=== PATIENT | male | born 1965 | race Caucasian/White ===

== ENCOUNTER 2021-08-17 17:38 | Emergency (ER) | payer OTHER, SELFPAY ==
--- NOTE | ~2021-08-17 | XR_ITS ---
EXAMINATION: XR finger 4th LT min 2V DATE: 08/17/2021 18:19 INDICATION: Left hand fourth digit injury. TECHNIQUE: 4 views of left hand fourth digit were obtained. COMPARISON: None. FINDINGS: Bone alignment is normal. No fracture. Joint spaces of the fourth digit are well maintained . IMPRESSION: 1. No fracture. Reviewed, dictated and finalized at location A. [facility] IMPRESSION: 1. No fracture.
--- NOTE | 2021-08-17 17:53 | ED.EXTPRO ---
HPI - Extremity Problem General Chief complaint: Extremity Injury, Upper Stated complaint: finger injur/hand swelling Source: patient and RN notes reviewed Mode of arrival: ambulatory Limitations: no limitations History of Present Illness HPI Narrative: patient states he got his left ring finger crushed between a battery and the body of the car. This happened 2 weeks ago he had a laceration at the palmar aspect of the DIP. Then a few days ago it began swelling and he is having difficulty touching his finger to his thumb and making a fist due to the swelling and has become more painful. MD Complaint: extremity swelling Onset (ago): day(s) (2) Pain Consistency: constant Location: left and upper extremity (hand) Severity scale (1-10): 8 Quality: burning and aching Radiation: none Relieving factors: nothing Exacerbating factors: range of motion Associated symptoms: denies other symptoms Related Data Allergies Allergy/AdvReac Type Severity Reaction Status Date / Time No Known Allergies Allergy Verified 08/17/21 18:18 Review of Systems Review of Systems: All systems reviewed & are unremarkable except as noted in HPI and below PMFSH Past Medical History Medical History (Updated 08/17/21 @ 18:36 by Milan Tse MD) No active medical problems Surgical History Surgical History (Updated 08/17/21 @ 18:00 by Milan Tse MD) H/O inguinal hernia repair as a child Hx of myringoplasty bilateral Social History Social History (Updated 08/17/21 @ 18:00 by Milan Tse MD) Smoking status: Never smoker Alcohol intake: never Substance use: never Exam Const: General: healthy appearing, no acute distress and alert Nutritional Appearance: well nourished Orientation/consciousness: patient oriented x3 HENMT: Head: normal to inspection Ears: external ears normal ( hearing aids in place bilaterally) Eyes: Conjunctivae: conjunctivae normal Pupils: Equal, round and reactive pupils present EOM: EOMs intact bilaterally Neck: Neck: normal visual inspection Resp: Effort & Inspection: normal respiratory effort Cardio: Rate: regular rate Rhythm: regular rhythm GI: GI Palp: Yes Soft to palpation and No Tenderness to palpation present (GI) Auscultation: normal bowel sounds Back/Spine/Pelvis: Cervical Spine: cervical ROM normal Thoracic/Lumbar Spine: thoraco-lumbar ROM normal Skin: General skin exam: normal color Neuro: General: patient oriented x3, moves all extremities, no meningeal signs, no focal motor deficits and CN's II-XI intact bilaterally Speech: normal speech Gait exam (Neuro): Normal gait present Extrem: General: normal to inspection and no clubbing, cyanosis or edema Left upper extremity: hand neurosensory exam normal, tendon exam normal, tenderness of the palm centrally, distally and proximally, warmth of the palm centrally, distally and proximally and swelling of the dorsal hand distally and proximally and of the palm centrally, distally and proximally Psych: Appearance: grossly normal and well kempt Mental Status: mental status grossly normal Affect: normal affect Attitude: cooperative Thought content: Yes Normal thought content present Course Vital Signs Vital signs: Vital Signs Temperature 36.4 C L 08/17/21 17:58 Pulse Rate 88 08/17/21 17:58 Respiratory Rate 18 08/17/21 17:58 Blood Pressure 164/112 H 08/17/21 17:58 Pulse Oximetry 99 08/17/21 17:58 Temperature 36.4 C L 08/17/21 17:58 Pulse Rate 88 08/17/21 17:58 Respiratory Rate 18 08/17/21 17:58 Blood Pressure 164/112 H 08/17/21 17:58 Pulse Oximetry 99 08/17/21 17:58 MDM - Extremity (Nontraumatic) Imaging Data Radiologist's impression: no fracture Discharge Plan Discharge Clinical Impression: Cellulitis of left hand Patient Disposition: Home, Self-Care Condition: Stable Instructions: Antibiotic Form, Cellulitis (ED) Additional Instructions: monitor for worsening erythem
[2021-08-17 17:58] VITALS: BP 164/112; PULSE 88; RESP 18; TEMP 36.4; O2SAT 99
[2021-08-17] MEDS: CLINDAMYCIN HCL 150 MG CAP 300 MG PO (18:40)
== END 2021-08-17 18:58 | disposition home or self-care (01) ==
PROVIDERS: Emergency Provider Emergency Medicine; PCP Family Medicine
DX: L03.114 Cellulitis of left upper limb (principal)
CPT/HCPCS: 73140; 99283; A9270

== ENCOUNTER 2024-11-20 06:26 | Emergency (ER) | payer OTHER, SELFPAY ==
[2024-11-20] VITALS (58 sets, daily range): BP systolic 105–154; BP diastolic 70–91; PULSE 62–84; RESP 9–21; TEMP 36.4–36.6; O2SAT 91–97
--- NOTE | ~2024-11-20 | XR_ITS ---
Portable chest x-ray Comparison: 08/31/2013 Clinical History: Chest pain Findings: 9 mm left midlung nodule present, question calcified. Right lung clear. Cardiomediastinal silhouette is stable. Bones and soft tissues are unremarkable. Impression: 9 mm left midlung nodule. Chest CT recommended to further evaluate. Reviewed, dictated and finalized at location . Impression: 9 mm left midlung nodule. Chest CT recommended to further evaluate.
--- NOTE | 2024-11-20 06:29 | PC.NURSE ---
CARDIOPULMONARY AT THE BEDSIDE FOR EKG
--- NOTE | 2024-11-20 06:29 | ECG_ITS ---
Test Date: 2024-11-20 06:32:29 Measurements Intervals [place] Rate: 66 P: 49 OH: 165 QRS: 52 QRSD: 104 T: -14 QT: 392 QTc: 412 Interpretive Statements SINUS RHYTHM MINIMAL Q WAVES- INF/LAT LEADS ST-T WAVE ABNORMALITY IN INFERIOR LEADS- CONSIDER ISCHEMIA BASELINE ARTIFACT- I, II, III, AVR, AVL, AVF, V1-V6 ABNORMAL ECG No previous ECG available for comparison Electronically Signed On 11-20-2024 08:15:01 CDT by Rai Delacruz D.O.
--- NOTE | 2024-11-20 06:35 | ED_ITS ---
HPI - Chest Pain General Chief Complaint: Chest Pain <Luan Garcias MD - Last Filed: 11/20/24 06:49> Stated Complaint: chest pain <Luan Garcias MD - Last Filed: 11/20/24 06:49> Time Seen by Provider: 11/20/24 06:29 <Luan Garcias MD - Last Filed: 11/20/24 06:49> Source: patient <Luan Garcias MD - Last Filed: 11/20/24 06:49> Mode of arrival: ambulatory <Luan Garcias MD - Last Filed: 11/20/24 06:49> Limitations: no limitations <Luan Garcias MD - Last Filed: 11/20/24 06:49> History of Present Illness HPI narrative: patient is a 58-year-old male with recurrent chest pain over the past few years and has been seen in ERs for similar situations and discharged home. He has not been admitted for workup in many years. He has had a heart catheter in a few years ago and it was negative. He has lots of stress and anxiety issues. No shortness of breath. No nausea vomiting or diarrhea. Pain is reproducible on the chest. Nitro helps. He took a nitro on his way to the hospital and it was helpful but did give him a headache. <Luan Garcias MD - Last Filed: 11/20/24 06:49> MD complaint: chest pain and chest discomfort <Luan Garcias MD - Last Filed: 11/20/24 06:49> Pertinent past history: other ( Hypertension) <Luan Garcias MD - Last Filed: 11/20/24 06:49> Onset (ago): hour(s) ( 1) <Luan Garcias MD - Last Filed: 11/20/24 06:49> Timing of current episode: episodic <Luan Garcias MD - Last Filed: 11/20/24 06:49> Prior episodes: Yes <Luan Garcias MD - Last Filed: 11/20/24 06:49> Onset: during rest <Luan Garcias MD - Last Filed: 11/20/24 06:49> Pain location: substernal and left chest <Luan Garcias MD - Last Filed: 11/20/24 06:49> Pain radiation: none <Luan Garcias MD - Last Filed: 11/20/24 06:49> Severity: mild <Luan Garcias MD - Last Filed: 11/20/24 06:49> Pain scale (0-10): 1 <Luan Garcias MD - Last Filed: 11/20/24 06:49> Quality: tightness, heaviness and sharp <Luan Garcias MD - Last Filed: 11/20/24 06:49> Relieving factors: nitroglycerin <Luan Garcias MD - Last Filed: 11/20/24 06:49> Exacerbating factors: stress <Luan Garcias MD - Last Filed: 11/20/24 06:49> Context: other ( patient is having on and off chest pain for many years and is here for his recurrent chest pain that gets worse with stress but better with nitro) <Luan Garcias MD - Last Filed: 11/20/24 06:49> Associated symptoms: other ( none) <Luan Garcias MD - Last Filed: 11/20/24 06:49> Treatment prior to arrival: nitroglycerin <Luan Garcias MD - Last Filed: 11/20/24 06:49> Risk Factors Coronary artery disease risk factors: hypertension <Luan Garcias MD - Last Filed: 11/20/24 06:49> Thoracic aortic dissection risk factors: none <Luan Garcias MD - Last Filed: 11/20/24 06:49> Related Data Home Medications: Home Medications ?Medication ?Instructions ?Recorded ?Confirmed ?Last Taken ?Type lisinopril 20 mg tablet 20 mg PO DAILY 11/20/24 11/20/24 Unknown History nitroglycerin 0.4 mg sublingual 0.4 mg sublingual Q5M PRN chest 11/20/24 11/20/24 Unknown History tablet pain <Luan Garcias MD - Last Filed: 11/20/24 06:49> Allergies/Adverse Reactions: Allergies Allergy/AdvReac Type Severity Reaction Status Date / Time No Known Allergies Allergy Verified 11/20/24 06:37 <Luan Garcias MD - Last Filed: 11/20/24 06:49> Review of Systems 2 Review of Systems: All systems reviewed & are unremarkable except as noted in HPI and below <Luan Garcias MD - Last Filed: 11/20/24 06:49> Constitutional: Constitutional: Reports no additional constitutional complaints <Luan Garcias MD - Last Filed: 11/20/24 06:49> Eyes: Eyes: Reports no additional eye complaints <Luan Garcias MD - Last Filed: 11/20/24 06:49> ENT: Reports system reviewed and no additional complaints, except as documented <Luan Garcias MD - Last Filed: 11/20/24 06:49> Cardiovascular: Cardiovascular: Reports no additional cardiovascular complaints <Luan Garcias MD - Last Filed: 11/20/24 06:49> Respiratory: Respiratory: Reports no additional respiratory complaints < Luan Garcias MD - Last Filed: 11/20/24 06:49> Gastrointestinal: Gastrointestinal: Reports no additional gastrointestinal complaints <Luan Garcias MD - Last Filed: 11/20/24 06:49> Genitourinary: Genitourinary: Reports no additional male genitourinary complaints <Luan Garcias MD - Last Filed: 11/20/24 06:49> Musculoskeletal: Musculoskeletal: Reports no additional musculoskeletal complaints <Luan Garcias MD - Last Filed: 11/20/24 06:49> Integumentary/Breasts: Skin/Breast: Reports system reviewed and no additional complaints, except as docu <Luan Garcias MD - Last Filed: 11/20/24 06:49> Neurologic: Reports system reviewed and no additional complaints, except as documented <Luan Garcias MD - Last Filed: 11/20/24 06:49> Psychiatric: Psychiatric: Reports no additional psychiatric complaints < Luan Garcias MD - Last Filed: 11/20/24 06:49> Endocrine: Endocrine: Reports no additional endocrine complaints <Luan Garcias MD - Last Filed: 11/20/24 06:49> Hematologic/Lymphatic: Hematologic/Lymphatic: Reports no additional hematologic/lymphatic complaints <Luan Garcias MD - Last Filed: 11/20/24 06:49> Allergic/Immunologic: Allergic/Immunologic: Reports no additional allergic/immunologic complaints <Luan Garcias MD - Last Filed: 11/20/24 06:49> PMFSH Past Medical History Medical History: Medical History No active medical problems <Luan Garcias MD - Last Filed: 11/20/24 06:49> Surgical History Surgical History: Surgical History Hx of myringoplasty bilateral H/O inguinal hernia repair as a child <Luan Garcais MD - Last Filed: 11/20/24 06:49> Social History Social History: Social History Smoking status: Never smoker Alcohol intake: never Substance use: never <Luan Garcias MD - Last Filed: 11/20/24 06:49> Exam 2 Const: General: healthy appearing <Luan Garcias MD - Last Filed: 11/20/24 06:49> Nutritional Appearance: well nourished <Luan Garcias MD - Last Filed: 11/20/24 06:49> Orientation/consciousness: patient oriented x3 <Luan Garcias MD - Last Filed: 11/20/24 06:49> HENMT: Head: normal to inspection <Luan Garcias MD - Last Filed: 11/20/24 06:49> Ears: external ears normal <Luan Garcias MD - Last Filed: 11/20/24 06:49> Face/Nose/Sinus: Normal external nose present <Luan Garcias MD - Last Filed: 11/20/24 06:49> Eyes: Conjunctivae: conjunctivae normal <MD Mellisa Trinh Last Filed: 11/20/24 06:49> Pupils: Equal, round and reactive pupils present <MD Mellisa Trinh Last Filed: 11/20/24 06:49> EOM: EOMs intact bilaterally <MD Mellisa Trinh Last Filed: 11/20/24 06:49> Neck: Neck: normal visual inspection <MD Mellisa Trinh Last Filed: 11/20/24 06:49> Chest: Chest palpation & inspection: normal inspection of the chest <MD Mellisa Trinh Last Filed: 11/20/24 06:49> Resp: Effort & Inspection: normal respiratory effort and not labored <MD Mellisa Trinh Last Filed: 11/20/24 06:49> Auscultation: clear to auscultation bilaterally and no crackles <MD Mellisa Trinh Last Filed: 11/20/24 06:49> Cardio: Rate: regular rate <MD Mellisa Trinh Last Filed: 11/20/24 06:49> Rhythm: regular rhythm <MD Mellisa Trinh Last Filed: 11/20/24 06:49> Heart sounds: no murmurs <MD Mellisa Trinh Last Filed: 11/20/24 06:49> GI: Inspection: non-distended <MD Mellisa Trinh Last Filed: 11/20/24 06:49> GI Palp: Yes Soft to palpation and No Tenderness to palpation present (GI) < MD Mellisa Trinh Last Filed: 11/20/24 06:49> Auscultation: normal bowel sounds <MD Mellisa Trinh Last Filed: 11/20/24 06:49> : General: Yes bladder normal to palpation <MD Mellisa Trinh Last Filed: 11/20/24 06:49> Back/Spine/Pelvis: Back: no CVA tenderness <MD Mellisa Trinh Last Filed: 11/20/24 06:49> Skin: General skin exam: normal color <Luan Garcias MD - Last Filed: 11/20/24 06:49> Rashes: no rashes <Luan Garcias MD - Last Filed: 11/20/24 06:49> Wounds: no wounds <Luan Garcias MD - Last Filed: 11/20/24 06:49> Neuro: General: patient oriented x3 <Luan Garcias MD - Last Filed: 11/20/24 06:49> Cranial nerves: Yes Nystagmus not present <Luan Garcias MD - Last Filed: 11/20/24 06:49> Speech: normal speech <Luan Garcias MD - Last Filed: 11/20/24 06:49> Extrem: General: normal to inspection <Luan Garcias MD - Last Filed: 11/20/24 06:49> Psych: Mental Status: mental status grossly normal <Luan Garcias MD - Last Filed: 11/20/24 06:49> Affect: normal affect <Luan Garcias MD - Last Filed: 11/20/24 06:49> Attitude: cooperative <Luan Garcias MD - Last Filed: 11/20/24 06:49> Course Consultations Consultation #1: DR STARKS <Gulshan Beyer MD - Last Filed: 11/20/24 13:16> Vital Signs Vital signs: Vital Signs Temperature 36.4 C 11/20/24 06:26 Pulse Rate 64 11/20/24 06:26 Respiratory Rate 12 11/20/24 06:26 Blood Pressure 119/72 11/20/24 06:26 Pulse Oximetry 96 11/20/24 06:26 Oxygen Delivery Room Air 11/20/24 06:26 Temperature 36.4 C 11/20/24 06:26 Pulse Rate 75 11/20/24 13:01 Respiratory Rate 17 11/20/24 12:31 Blood Pressure 140/80 11/20/24 13:01 Pulse Oximetry 94 11/20/24 13:01 Oxygen Delivery Room Air 11/20/24 06:26 <Luan Garcias MD - Last Filed: 11/20/24 06:49> Vital Signs Temperature 36.4 C 11/20/24 06:26 Pulse Rate 64 11/20/24 06:26 Respiratory Rate 12 11/20/24 06:26 Blood Pressure 119/72 11/20/24 06:26 Pulse Oximetry 96 11/20/24 06:26 Oxygen Delivery Room Air 11/20/24 06:26 Temperature 36.4 C 11/20/24 06:26 Pulse Rate 75 11/20/24 13:01 Respiratory Rate 17 11/20/24 12:31 Blood Pressure 140/80 11/20/24 13:01 Pulse Oximetry 94 11/20/24 13:01 Oxygen Delivery Room Air 11/20/24 06:26 <Gulshan Beyer MD - Last Filed: 11/20/24 13:16> MDM - Chest Pain MDM Narrative Medical decision making narrative: patient is a 58-year-old male with recurrent chest pain here with a chest pain episode. We will do a cardiovascular workup at this time. He would be a candidate for double troponin check. I will change patient with new oncoming physician at shift change. <Luan Garcias MD - Last Filed: 11/20/24 06:49> patient is a 58-year-old male with recurrent chest pain here with a chest pain episode. We will do a cardiovascular workup at this time. He would be a candidate for double troponin check. I will change patient with new oncoming physician at shift change. Patient has been having intermittent chest pain last for less than 5 minutes each time since my arrival to the ED at 7:00 a.m. until now. Patient had history of hypertension, obesity, strong family history of coronary artery disease. Patient is telling me that he chest pain prior to arrival to the emergency room got better on nitroglycerin. First troponin less than 4, 2nd troponin is 4,. Repeated EKG showed improvement compared to the 1st 1, no ischemic changes, no ST T-wave abnormalities. Basically abnormal EKG Coronary spasm could be a possibility My plan to transfer patient to another facility further evaluation PATIENT WAS ACCEPTED TO TRANSFERRED TO [facility] <Gulshan Beyer MD - Last Filed: 11/20/24 13:16> Lab Data Attestation: I reviewed the patient's lab results. <Luan Garcias MD - Last Filed: 11/20/24 06:49> Result diagrams: 11/20/24 06:42 11/20/24 06:42 <Luan Garcias MD - Last Filed: 11/20/24 06:49> Labs: Lab Results 11/20/24 11/20/24 Range/Units 06:42 09:32 WBC 7.1 (4.8-10.8) K/mm3 RBC 4.63 L (4.70-6.10) M/mm3 Hgb 14.2 (14.0-18.0) g/dL Hct 43.2 (40.0-54.0) % MCV 93.3 (78.0-102.0) fL MCH 30.7 (27.0-31.0) pg MCHC 32.9 (32-36) g/dL RDW 12.8 (11.6-14.4) % Plt Count 182 (150-420) K/mm3 MPV 9.1 (8.7-11.0) fl Immature Gran % (Auto) 0.4 H (0.0-0.0) % Neut % (Auto) 73.2 H (50.0-70.0) % Lymph % (Auto) 17.0 L (18.0-42.0) % R[place] % (Auto) 5.8 (2.0-11.0) % Eos % (Auto) 3.2 (1.0-6.0) % Baso % (Auto) 0.4 (0.0-1.0) % Lymph # (Auto) 1.21 (1.10-4.50) K/mm3 R[place]els # (Auto) 0.41 (0.10-0.90) K/mm3 Eos # (Auto) 0.23 (0.02-0.50) K/mm3 Baso # (Auto) 0.03 (0.00-0.10) K/mm3 Abs Immat Gran (auto) 0.03 H (0.00-0.00) K/mm3 Absolute Neuts (auto) 5.20 (1.70-7.20) K/mm3 Absolute Nucleated RBC 0.00 (0.00-0.00) K/mm3 Nucleated RBC % 0.0 (0-0.0) % PT 10.1 (9.50-12.1) Seconds INR 0.9 APTT 26.5 (23.9-30.70) Sec D-Dimer 0.35 (0.19-0.50) mg/L Sodium 138 (136-145) mmol/L Potassium 4.5 (3.5-5.1) mmol/L Chloride 103 (98-108) mmol/L Carbon Dioxide 31 (21-32) mmol/L Anion Gap 4 (4-12) mmol/L BUN 17 (7-18) mg/dL Creatinine 1.11 (0.70-1.30) mg/dL Estim Creat Clear Calc 82 ml/min Estimated GFR > 60 (59 - ) Glucose 104 H (70-99) mg/dL Calculated Osmolality 287 (285-295) mOsm/kg Calcium 8.6 (8.5-10.1) mg/dL Magnesium 2.1 (1.8-2.4) mg/dL Total Bilirubin 0.5 (0.00-1.00) mg/dL AST 19 (15-37) U/L ALT 46 (16-63) U/L Alkaline Phosphatase 102 (46-116) U/L Troponin I < 4.0 4.0 (0.00-60.4) ng/L NT-Pro-B Natriuret Pep 15 (0-125) pg/mL Total Protein 7.3 (6.4-8.2) g/dL Albumin 4.2 (3.4-5.0) g/dL Lipase 82 H (16-77) U/L <Luan Garcias MD - Last Filed: 11/20/24 06:49> Lab Results 11/20/24 11/20/24 Range/Units 06:42 09:32 WBC 7.1 (4.8-10.8) K/mm3 RBC 4.63 L (4.70-6.10) M/mm3 Hgb 14.2 (14.0-18.0) g/dL Hct 43.2 (40.0-54.0) % MCV 93.3 (78.0-102.0) fL MCH 30.7 (27.0-31.0) pg MCHC 32.9 (32-36) g/dL RDW 12.8 (11.6-14.4) % Plt Count 182 (150-420) K/mm3 MPV 9.1 (8.7-11.0) fl Immature Gran % (Auto) 0.4 H (0.0-0.0) % Neut % (Auto) 73.2 H (50.0-70.0) % Lymph % (Auto) 17.0 L (18.0-42.0) % R[place] % (Auto) 5.8 (2.0-11.0) % Eos % (Auto) 3.2 (1.0-6.0) % Baso % (Auto) 0.4 (0.0-1.0) % Lymph # (Auto) 1.21 (1.10-4.50) K/mm3 R[place] # (Auto) 0.41 (0.10-0.90) K/mm3 Eos # (Auto) 0.23 (0.02-0.50) K/mm3 Baso # (Auto) 0.03 (0.00-0.10) K/mm3 Abs Immat Gran (auto) 0.03 H (0.00-0.00) K/mm3 Absolute Neuts (auto) 5.20 (1.70-7.20) K/mm3 Absolute Nucleated RBC 0.00 (0.00-0.00) K/mm3 Nucleated RBC % 0.0 (0-0.0) % PT 10.1 (9.50-12.1) Seconds INR 0.9 APTT 26.5 (23.9-30.70) Sec D-Dimer 0.35 (0.19-0.50) mg/L Sodium 138 (136-145) mmol/L Potassium 4.5 (3.5-5.1) mmol/L Chloride 103 (98-108) mmol/L Carbon Dioxide 31 (21-32) mmol/L Anion Gap 4 (4-12) mmol/L BUN 17 (7-18) mg/dL Creatinine 1.11 (0.70-1.30) mg/dL Estim Creat Clear Calc 82 ml/min Estimated GFR > 60 (59 - ) Glucose 104 H (70-99) mg/dL Calculated Osmolality 287 (285-295) mOsm/kg Calcium 8.6 (8.5-10.1) mg/dL Magnesium 2.1 (1.8-2.4) mg/dL Total Bilirubin 0.5 (0.00-1.00) mg/dL AST 19 (15-37) U/L ALT 46 (16-63) U/L Alkaline Phosphatase 102 (46-116) U/L Troponin I < 4.0 4.0 (0.00-60.4) ng/L NT-Pro-B Natriuret Pep 15 (0-125) pg/mL Total Protein 7.3 (6.4-8.2) g/dL Albumin 4.2 (3.4-5.0) g/dL Lipase 82 H (16-77) U/L <Gulshan Beyer MD - Last Filed: 11/20/24 13:16> Imaging Data Attestation: I personally reviewed and interpreted this imaging study as follows: <Luan Garcias MD - Last Filed: 11/20/24 06:49> ECG Data EKG #1: Attestation: I personally reviewed and interpreted this ECG as follows: <Luan Garcias MD - Last Filed: 11/20/24 06:49> ECG completion date: 11/20/24 <Luan Garcias MD - Last Filed: 11/20/24 06:49> ECG completion time: 06:48 <Luan Garcias MD - Last Filed: 11/20/24 06:49> EKG Interpretation: normal rate, sinus rhythm, no ectopy, non-specific ST changes, normal QRS, normal QT and NL axis <Luan Garcias MD - Last Filed: 11/20/24 06:49> EKG #2: Attestation: I personally reviewed and interpreted this ECG as follows: <Gulshan Beyer MD - Last Filed: 11/20/24 13:16> ECG completion date: 11/20/24 <Gulshan Beyer MD - Last Filed: 11/20/24 13:16> Prior ECG tracings: available for review <Gulshan Beyer MD - Last Filed: 11/20/24 13:16> Interpretation: Normal sinus rhythm at 62 beats per minute, compared to EKG early today T-wave abnormality no longer present, possible ischemia no longer present. <Gulshan Beyer MD - Last Filed: 11/20/24 13:16> Critical Care Time Critical Care Time Critical Care Time: No <Gulshan Beyer MD - Last Filed: 11/20/24 13:16> Discharge Plan Discharge Clinical Impression: Chest pain <Luan Garcias MD - Last Filed: 11/20/24 06:49> Patient Disposition: Acute Care Hospital <Luan Garcias MD - Last Filed: 11/20/24 06:49> Condition: Improved <Luan Garcias MD - Last Filed: 11/20/24 06:49> Patient Language: Polish <Luan Garcias MD - Last Filed: 11/20/24 06:49> Prescriptions: No Action lisinopril 20 mg tablet 20 mg PO DAILY nitroglycerin 0.4 mg tablet, sublingual 0.4 mg sublingual Q5M PRN (Reason: chest pain) <Luan Garcias MD - Last Filed: 11/20/24 06:49> Follow-up/Referrals: Lana Lemus MD [Primary Care Provider] - <Luan Garcias MD - Last Filed: 11/20/24 06:49> Quality HEART score for chest pain patients History: moderately suspicious <Gulshan Beyer MD - Last Filed: 11/20/24 13:16> ECG: normal <Gulshan Beyer MD - Last Filed: 11/20/24 13:16> Age: > 45 and < 65 years <Gulshan Beyer MD - Last Filed: 11/20/24 13:16> Risk factors: > or = to 3 risk factors of atherosclerotic disease <Gulshan Beyer MD - Last Filed: 11/20/24 13:16> Troponin: < or = to 1x normal limit <Gulshan Beyer MD - Last Filed: 11/20/24 13:16> Heart score: 4 <Gulshan Beyer MD - Last Filed: 11/20/24 13:16>
--- NOTE | 2024-11-20 06:38 | PC.NURSE ---
PATIENT AMBULATED TO THE BATHROOM AND BACK TO ROOM. DEVI VALERA AT THE BEDSIDE STARTING IV LINE AND DRAWING BLOOD. LAB AT THE BEDSIDE
--- NOTE | 2024-11-20 06:43 | PC.NURSE ---
DR TATUM AT THE BEDSIDE. XRAY OUTSIDE THE ROOM
[2024-11-20 06:48] LABS: Basophils Absolute Auto 0.03 K/mm3 (0.00-0.10); Basophils Percent Auto 0.4 % (0.0-1.0); Eosinophils Absolute Auto 0.23 K/mm3 (0.02-0.50); Eosinophils Percent Auto 3.2 % (1.0-6.0); Hematocrit 43.2 % (40.0-54.0); Hemoglobin 14.2 g/dL (14.0-18.0); Immature Granulocyte Absolute 0.03 K/mm3 (0.00-0.00); Immature Granulocyte Percent A 0.4 % (0.0-0.0); Lymphocytes Absolute Auto 1.21 K/mm3 (1.10-4.50); Mean Corpuscular HGB Conc 32.9 g/dL (32-36); Mean Corpuscular Hemoglobin 30.7 pg (27.0-31.0); Mean Corpuscular Volume 93.3 fL (78.0-102.0); Mean Platelet Volume 9.1 fl (8.7-11.0); Monocytes Absolute Auto 0.41 K/mm3 (0.10-0.90); Monocytes Percent Auto 5.8 % (2.0-11.0); Neutrophils Percent Auto 73.2 % (50.0-70.0); Platelet Count Result 182 K/mm3 (150-420); Red Blood Count 4.63 M/mm3 (4.70-6.10); Red Cell Distribution Width 12.8 % (11.6-14.4); White Blood Count 7.1 K/mm3 (4.8-10.8)
[2024-11-20] MEDS: ASPIRIN 81 MG CHEWABLE TABLET 324 MG PO (06:49)
[2024-11-20 07:02] LABS: D Dimer 0.35 mg/L (0.19-0.50); INR 0.9; Partial Thromboplastin Time 26.5 Sec (23.9-30.70); Prothrombin Time 10.1 Seconds (9.50-12.1)
[2024-11-20 07:09] LABS: Alanine Aminotransferase 46 U/L (16-63); Albumin Level 4.2 g/dL (3.4-5.0); Alkaline Phosphatase 102 U/L (46-116); Anion Gap 4 mmol/L (4-12); Aspartate Amino Transferase 19 U/L (15-37); Bilirubin,Total 0.5 mg/dL (0.00-1.00); Blood Urea Nitrogen 17 mg/dL (7-18); Calcium 8.6 mg/dL (8.5-10.1); Carbon Dioxide 31 mmol/L (21-32); Chloride 103 mmol/L (98-108); Estimated CRCL calculation 82 ml/min; Estimated Glomerular Filt Rate > 60; Glucose 104 mg/dL (70-99); Lipase 82 U/L (16-77); Magnesium 2.1 mg/dL (1.8-2.4); NT Pro B Type Natriuretic Pept 15 pg/mL (0-125); Osmolality Calculated 287 mOsm/kg (285-295); Potassium 4.5 mmol/L (3.5-5.1); Sodium 138 mmol/L (136-145); Total Protein 7.3 g/dL (6.4-8.2)
[2024-11-20 07:12] LABS: Troponin I < 4.0 ng/L (0.00-60.4)
--- OUTSIDE RECORDS SUMMARY | 2024-11-20 08:16 | XMS_ITS | Clinical Summary ---
Author Organization [facility] Address [address] [place] [address] Care Team Providers Care Beater And Pulper Feeder Name Role Phone Lana Lemus MD Primary Care Provider [phone] Allergies No known active allergies Medications LISINOPRIL OR Active nitroglycerin (NITROSTAT) 0.[address] 1 tablet (0.4 mg total) under the tongue every 5 (five) minutes as needed for Chest Pain. 60 tablet 12/17/2023 Active Active Problems Problem Noted Date Diagnosed Date Flexor tenosynovitis of finger 08/20/2021 Family History Medical History Relation Comments Cancer Father Heart Disease Father Hyperlipidemia Father Hypertension Father Diabetes Maternal Grandmother Heart Disease Maternal Grandmother Hyperlipidemia Maternal Grandmother Hypertension Maternal Grandmother Diabetes Mother Heart Disease Mother Relation Status Comments Brother Alive Father Maternal Grandmother Mother Alive Social History Tobacco Use Types Packs/Day Years Used Date Smoking Tobacco: Never Smokeless Tobacco: Never Alcohol Use Standard Drinks/Week Comments Never 0 (1 standard drink = 0.6 oz pur e alcohol) Sex and Gender Information Value Date Recorded Sex Assigned at Not on file Legal Sex Male 10:57 PM CDT Gender Identity Not on file Sexual Orientation Not on file Last Filed Vital Signs Vital Sign Reading Time Taken Comments Blood Pressure 100/66 12/17/2023 2:30 PM CDT Pulse 65 12/17/2023 2:30 PM CDT Temperature 36.2 C (97.1 F) 12/17/2023 10:57 AM CDT Respiratory Rate 20 12/17/2023 10:57 AM CDT Oxygen Saturation 96% 12/17/2023 2:30 PM CDT Inhaled Oxygen Concentration - - Weight 108.9 kg (240 lb) 12/17/2023 10:57 AM CDT Height 182.9 cm (6') 12/17/2023 10:57 AM CDT Body Mass Index 32.55 12/17/2023 10:57 AM CDT Plan of Treatment Health Maintenance Due Date Last Done Comments Colorectal Cancer Screening Colonoscopy (10 Years) 1965 Annual Physical 1968 Hepatitis C 12/04/1983 DTaP, Tdap and Td Vaccines ( 1 - Tdap) 1984 Hepatitis B Vaccines (1 of 3 - 19+ 3-dose series) 1984 Zoster Vaccines (1 of 2) 12/04/2015 COVID-19 Vaccine (2023-2 5 season) 2024 Meningococcal B Vaccine Aged Out No l onger eligible based on patient's age to complete this topic Meningococcal Vaccine Aged Out No jose alfredo alfredo eligible based on patient's age to complete this topic Pneumococcal Vaccine: Pediat rics (0 to 5 Years) and At-Risk Patients (6 to 64 Years) Aged Out No longer eligible b ased on patient's age to complete this topic RSV Immunizations Under 20 Months Aged Out No longer eligible based on patient's age to complete this topic Insurance [facility] Advance Directives * Full Code (Latest Code Status on File) Date Activated Date Inactivated Comments 08/21/2021 6:57 PM 08/22/2021 12:12 PM Care Teams Beater And Pulper Feeder Relationship Specialty Start Date End Date Lana Lemus MD [address] [place] [address] PCP - General FAMILY PRACTICE 10/14/20
--- OUTSIDE RECORDS SUMMARY | 2024-11-20 08:16 | XMS_ITS | Encounter Summary ---
Author Organization [facility] Address [address] [place] [address] Care Team Providers Care Land Lease Information Clerk Name Role Phone Lana Lemus MD Primary Care Provider [phone] Encounter Details Date Type Department Care Team (Late st Contact Info) Description 01/21/2019 Abstract SFL CONVERSION [address] [place] [address] , Generic Conversion, Social History Tobacco Use Types Packs/Day Years Used Date Smoking Tobacco: Never Sex and Gender Information Value Date Recorded Sex Assigned at Not on file Legal Sex Male 10:57 PM CDT Gender Identity Not on file Sexual Orientation Not on file documented as of this encounter Plan of Treatment Not on file documented as of this encounter Visit Diagnoses Not on filedocumented in this encounter Additional Health Concerns Infection Onset Date Last Indicated Resolved Time COVID-19 Rule Out 08/20/2021 08/20/2021 08/20/2021 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
--- NOTE | 2024-11-20 10:30 | ECG_ITS ---
Test Date: 2024-11-20 10:47:42 Measurements Intervals [place] Rate: 62 P: 40 CT: 170 QRS: 43 QRSD: 109 T: -8 QT: 408 QTc: 415 Interpretive Statements SINUS RHYTHM MINIMAL Q WAVES- INFERIOR LEADS ST-T WAVE ABNORMALITY IN INFERIOR LEADS- CONSIDER ISCHEMIA ABNORMAL ECG Compared to ECG 11/20/2024 06:32:29 NO SIGNIFICANT CHANGE Electronically Signed On 11-20-2024 11:04:29 CDT by Rai Delacruz D.O.
--- NOTE | 2024-11-20 10:43 | PC.NURSE ---
Patient ambulatory to bathroom and back without difficulty.
== END 2024-11-20 14:00 | disposition short-term general hospital (02) ==
PROVIDERS: Emergency Medicine; Emergency Provider Emergency Medicine; PCP Family Medicine
DX: R07.9 Chest pain, unspecified (principal); I10 Essential (primary) hypertension
CPT/HCPCS: 36415; 71045; 80053; 83690; 83735; 83880; 84484; 85025; 85380; 85610; 85730; 93005; 99285; A9270

== ENCOUNTER 2024-11-20 14:47 | Observation (INO) | payer OTHER, SELFPAY ==
[2024-11-20] VITALS (9 sets, daily range): BP systolic 94–128; BP diastolic 65–79; PULSE 67–79; RESP 16; TEMP 36.4–36.6; O2SAT 95–98; BMI 31.4
--- NOTE | 2024-11-20 14:58 | ADMGEN ---
This patient, Kirby Jerez, was admitted to IMU Room 203-01 at 1440. Patient/family oriented to hospital policies and general routines including ID bracelet, bed and alarms, visiting hours, pain management, procedures, bathroom and other care routines, personal items, smoking policy, room service/diet, and visiting hours. Information on how to activate the Rapid Response Team has been discussed. Patient/Family are encouraged to report perceived risks to care and to ask questions if they do not understand what they are told or what they should do.
--- NOTE | 2024-11-20 15:05 | ECG_ITS ---
Test Date: 2024-11-20 15:34:53 Measurements Intervals [place] Rate: 68 P: 45 FL: 177 QRS: 61 QRSD: 101 T: 7 QT: 376 QTc: 402 Interpretive Statements SINUS RHYTHM NORMAL ECG Compared to ECG 11/20/2024 10:47:42 T-wave abnormality no longer present Possible ischemia no longer present Electronically Signed On 11-20-2024 16:27:25 CDT by Rai Delacruz D.O.
--- NOTE | 2024-11-20 15:54 | PM.IMHP ---
H&P: HPI History of Present Illness Date/Time: 11/20/24 15:54 Chief Complaint: chest pain Narrative: Patient with history of chest pain and several negative stress test, anxiety ,hypertension presented with another episode of chest pain. Patient notes he was driving the morning around 4:00 a.m. and suddenly developed 4/ 10 sharp midsternal chest pain.pain was intermittent midsternal , nonradiating, getting worse with taking deep breath and palpation. denies N/V, sweating.denies leg swelling or pain. he continue driving but pain was getting worse. he took advil and one nitro and pain was better. Patient denies smoking. Family history of heart disease in his father at old age He decided to come to [facility] for further management. In The Er EKG showed some nonspecific T inversion. troponin negative. He was transferred to our hospital for further management. At time of my exam patient is feeling fine. chat pain improved. denies any SOB, abd pain, nausea or vomiting. Cardiology team has been consulted. Review of Systems Review of Systems: All systems reviewed & are unremarkable except as noted in HPI and below PMFSH Past Medical History Medical History (Updated 11/20/24 @ 16:03 by Emir Whitlock MD) No active medical problems Surgical History Surgical History Hx of myringoplasty bilateral H/O inguinal hernia repair as a child Family History Family History Father Heart disease Cerebrovascular accident Social History Social History Smoking status: Never smoker Alcohol intake: never Substance use: never Do You Feel Safe in your Home?: Yes Lack of Transportation: No Lack of Food: Never True Current Housing: I Have Housing Concerned About Future Housing: No Difficulty Paying Gas/Electric Bills: No Difficulty Paying for Meds: No Currently Unemployed: No Education: High School Diploma/GED Difficulty w/ Childcare or Family Care: No Spiritual care concerns: Yes Meds Home Medications and Allergies Home Medications ?Medication ?Instructions ?Recorded ?Confirmed ?Type lisinopril 20 mg tablet 20 mg PO DAILY 11/20/24 11/20/24 History nitroglycerin 0.4 mg sublingual 0.4 mg sublingual Q5M PRN chest 11/20/24 11/20/24 History tablet pain Allergies Allergy/AdvReac Type Severity Reaction Status Date / Time No Known Allergies Allergy Verified 11/20/24 06:37 Vital Signs Vital Signs - 24 hr 11/20/24 14:50 Temperature 97.6 F Pulse Rate 71 Respiratory Rate 16 Blood Pressure 125/79 Pulse Oximetry 95 Exam Const: General: cooperative, comfortable, alert and awake Nutritional Appearance: average body habitus and well nourished HENMT: Head: normal to inspection, No palpable skull fracture present and normocephalic Neck: Neck: normal visual inspection and full ROM Chest: Chest palpation & inspection: normal inspection of the chest and normal palpation of entire chest wall Resp: Effort & Inspection: normal respiratory effort and able to speak in complete sentences Auscultation: clear to auscultation bilaterally GI: Inspection: normal to inspection Skin: General skin exam: normal color and no rashes or lesions noted Extrem: General: normal to inspection, full ROM and no pedal edema Assessment and Plan Assessment and plan (1) HTN (hypertension): Code(s): I10 - Essential (primary) hypertension Status: Acute (2) Chest pain: Code(s): R07.9 - Chest pain, unspecified Status: Acute Plan chest pain Atypical Troponin levels neg EKG neg for acute changes will checl lipid panel, A1C and TSH Will get echo tele monitoring Cardiology team on board HTN BP stable hold of lisinopril for now continue to monitor Quality VTE Prophylaxis VTE prophylaxis: mechanical ordered
[2024-11-20 15:59] LABS: Troponin I < 0.012 ng/mL (0.000-0.034)
--- OUTSIDE RECORDS SUMMARY | 2024-11-20 16:58 | XMS_ITS | Clinical Summary ---
Author Organization [facility] Address [address] [place] [address] Care Team Providers Care Jewelry Designer Name Role Phone Lana Lemus MD Primary Care Provider [phone] Allergies No known active allergies Medications LISINOPRIL [...] patient's age to complete this topic Insurance [facility] Advance Directives * Full Code (Latest Code Status on File) Date Activated Date Inactivated Comments 08/21/2021 6:57 PM 08/22/2021 12:12 PM Care Teams Jewelry Designer Relationship Specialty Start Date End Date Lana Lemus MD [address] [place] [address] PCP - General FAMILY PRACTICE 10/14/20
--- OUTSIDE RECORDS SUMMARY | 2024-11-20 16:58 | XMS_ITS | Encounter Summary ---
Author Organization [facility] Address [address] [place] [address] Care Team Providers Care Maintenance Plumber Name Role Phone Lana Lemus MD Primary Care Provider [phone] Encounter Details Date Type Department Care Team (Late st Contact Info) Description 01/21/2019 Abstract SFL CONVERSION [address] [place] [address] , Generic Conversion, Social History Tobacco [...] Rule Out 08/20/2021 08/20/2021 08/20/2021 8:09 AM VENEER SORTER documented as of this encounter Care Teams Maintenance Plumber Relationship Specialty Start Date End Date Lana Lemus MD [address] [place] [address] PCP - General FAMILY PRACTICE 10/14/20 documented as of this encounter
--- NOTE | 2024-11-21 | ECHO_ITS ---
Patient Info Name: Kirby Jerez Age: 58 years : 1965 Gender: Male Ht: 72 in Wt: 231 lbs BSA: 2.33 m2 HR: 64 bpm BP: 113 / 64 mmHg Heart Rhythm: Sinus Rhythm Technical Quality: Good Exam Date: 11/21/2024 8:44 AM Exam Location: Echo Lab Patient Status: Inpatient Admit Date: 11/20/2024 Staff Ordering Physician: Emir Whitlock MD Head Men'S Golf Coach: Brianna Oliveira RDCS Attending Provider: Emir Whitlock MD Exam Type: CA echo dop color flow w con Study Info Indications R07.9 - Chest pain, unspecified Complete two-dimensional, color flow and Doppler transthoracic echocardiogram is performed with contrast to opacify the left ventricle and to improve the deliniation of the left ventricle endocardial borders. Contrast/Agitated Saline Contrast/Ag. Saline: Definity Amount: 2.00 ml Administered By: Brianna Oliveira RDCS Existing IV Access: Yes IV Access Condition: patent with no signs of infiltration Summary 1. Left ventricular chamber dimension is normal. 2. Left ventricular systolic function is normal, estimated at 65-70%. 3. There is mildly increased left ventricular wall thickness. 4. The left ventricular diastolic function is grade I diastolic dysfunction. 5. Right ventricular systolic function is normal. 6. No significant valvular disease. Left Ventricle Left ventricular chamber dimension is normal. Left ventricular systolic function is normal, estimated at 65-70%. There is mildly increased left ventricular wall thickness. The left ventricular diastolic function is grade I diastolic dysfunction. Right Ventricle Right ventricular chamber dimension is normal. Right ventricular systolic function is normal. Left Atria Left atrial chamber dimension is normal. Right Atria Right atrial chamber dimension is normal. Atrial Septum Intact interatrial septum visualized by color flow imaging. Aortic Valve The aortic valve is not well visualized. There is mild aortic valve sclerosis. There is no aortic valve regurgitation. Pulmonic Valve The pulmonic valve is not well visualized. There is trace pulmonic regurgitation. Mitral Valve There is trace mitral valve regurgitation. Tricuspid Valve There is trace tricuspid valve regurgitation. Pericardium/Pleural The pericardium appears epicardial fat pad. There is no pericardial effusion. Inferior Vena Cava Normal inferior vena cava with <50% collapse upon inspiration consistent with elevated right atrial pressure, 8 mmHg. Aorta The aortic root size at the sinus of Valsalva is normal. Left Ventricular Outflow Tract Name Value Normal LVOT 2D LVOT Diameter 2.05 cm LVOT Doppler LVOT Peak Gradient 3 mmHg LVOT Mean Gradient 2 mmHg LVOT VTI 18.98 cm LVOT VTI/AV VTI Ratio 0.90 LVOT Stroke Volume 62.61 ml LVOT CO 4.05 l/min LVOT CI 1.73 L/min/m2 Pulmonic Valve Name Value Normal RVOT Doppler RVOT Peak Gradient 2 mmHg PV Doppler PV Peak Gradient 6 mmHg Mitral Valve Name Value Normal MV Doppler MV Decel Stanton 356.08 cm/s2 MV PHT 0 s MV Area (PHT) 3.80 cm2 4.00-5.00 MV Diastolic Function MV E Peak Velocity 71.14 cm/s MV A Peak Velocity 56.46 cm/s MV E/A 1.26 MV Decel Time 0 s MV Annular TDI MV E/e' (Septal) 10.35 <=8.00 MV E/e' (Lateral) 7.80 <=8.00 MV E/e' (Average) 9.07 Tricuspid Valve Name Value Normal TV Regurgitation Doppler TR Peak Velocity 170.76 cm/s TR Peak Gradient 12 mmHg Estimated PAP/RSVP RA Pressure 8 mmHg <=5 PA Systolic Pressure 20 mmHg <36 RV Systolic Pressure 20 mmHg <36 Aorta Name Value Normal Ascending Aorta Ao Root Diameter (MM) 3.71 cm Ao Root Diam Index (MM) 1.59 cm/m2 Aortic Valve Name Value Normal AV Doppler AV Peak Velocity 116.65 cm/s AV Peak Gradient 5 mmHg AV Mean Gradient 3 mmHg AV VTI 21.20 cm AV Area (Cont Eq VTI) 2.95 cm2 >=3.00 AV Area (Cont Eq Yunior) 2.53 cm2 AV Regurgitation 2D LVOT Area 3.30 cm2 Ventricles Name Value Normal LV Dimensions 2D/MM IVS Diastolic Thickness (2D) 1.22 cm 0.60-1.00 LVID Diastole (2D) 5.30 cm 4.20-5.80 LVIW Diastolic Thickness (2D) 1.11 cm 0.60-1.00 LVID Systole (2D) 3.19 cm 2.50-4.00 LVOT Diameter 2.05 cm LV Mass (2D Cubed) 246.93 g 88.00-224.00 LV Mass Index (2D Cubed) 0.01 g/cm2 0.00-0.01 Relative Wall Thickness (2D) 0.42 LV Fractional Shortening/Ejection Fraction 2D/MM LV Fractional Shortening (2D) 40 % 25-43 LV EF (2D Teicholz) 70 % 52-72 LV Diastolic Volume (4C MOD) 57.48 ml LV EF (4C MOD) 65 % LV Diastolic Volume (2C MOD) 45.88 ml LV EF (2C MOD) 70 % LV Diastolic Volume (BP MOD) 51.60 ml 62.00-150.00 LV Diastolic Volume Index (BP MOD) 0.02 l/m2 0.03-0.07 LV Systolic Volume (BP MOD) 17.10 ml 21.00-61.00 LV Systolic Volume Index (BP MOD) 0.01 l/m2 0.01-0.03 LV EF (BP MOD) 67 % 52-72 LV Diastolic Length (4C) 8.07 cm LV Systolic Length (4C) 6.07 cm LV Stroke Volume (4C MOD) 37.39 ml Atria Name Value Normal LA Dimensions LA Dimension (MM) 3.89 cm 3.00-4.10 LA Volume (4C A-L) 43.14 ml LA Volume (BP A-L) 45.25 ml RA Dimensions RA Area (4C) 18.13 cm2 <=18.00 Report Signatures
[2024-11-21 04:00] VITALS: BP 113/64; PULSE 69; PULSE 73; RESP 16; TEMP 36.5; O2SAT 98
[2024-11-21 04:31] LABS: Hematocrit 41.3 % (42.0-52.0); Hemoglobin 13.5 g/dL (14.0-18.0); Mean Corpuscular HGB Conc 32.7 g/dl (32-36); Mean Corpuscular Volume 94.7 fl (80-100); Mean Platelet Volume 9.2 fl (7.4-10.4); Platelet Count Result 166 k/mm3 (150-375); Red Blood Count 4.36 M/mm3 (4.6-6.20); Red Cell Distribution Width 12.9 % (11.5-14.5); White Blood Count 6.7 K/mm3 (4.5-10.0)
[2024-11-21 04:42] LABS: Cholesterol 200 mg/dL (0-200); HDL Direct 34 mg/dL; Hemoglobin A1C 5.1 % (<5.7); Triglycerides 256 mg/dL (<150)
[2024-11-21 04:44] LABS: Anion Gap 4 mmol/L (4-12); Blood Urea Nitrogen 17 mg/dL (9-20); Calcium 8.6 mg/dL (8.4-10.2); Carbon Dioxide 29 mmol/L (22-30); Chloride 103 mmol/L (98-107); Estimated CRCL calculation 92 ml/min; Estimated Glomerular Filt Rate > 60; Glucose 99 mg/dL (65-110); Potassium 4.2 mmol/L (3.4-5.0); Sodium 136 mmol/L (137-145)
[2024-11-21 04:53] LABS: LDL Cholesterol Direct 115 mg/dL
[2024-11-21 06:23] VITALS: PULSE 64
[2024-11-21 07:35] VITALS: BP 120/68; PULSE 68; RESP 16; TEMP 36.6; O2SAT 95
[2024-11-21 08:00] VITALS: PULSE 66
[2024-11-21] MEDS: ENOXAPARIN 40 MG/0.4 ML SYRINGE SUB-Q (08:35)
[2024-11-21] MEDS: PERFLUTREN LIPID MICROSPHERES 1.5 ML VIAL DILUTED TO 10 ML TOTAL VOLUME IV PUSH (08:50)
--- NOTE | 2024-11-21 09:12 | PM.CNCAR ---
History of Present Illness History of Present Illness Consult date/time: 11/21/24 09:12 Requesting physician: Emir Whitlock MD Consult reason: chest pain Reason For Visit: chest pain,pneumonia Narrative: Kirby Jerez is a 58-year-old male with no significant past medical history. He was transferred to [facility] from [facility] where he presented with a chief complaint of chest pain. PMFSH Past Medical History Medical History No active medical problems Surgical History Surgical History Hx of myringoplasty bilateral H/O inguinal hernia repair as a child Family History Family History Father Heart disease Cerebrovascular accident Social History Social History Smoking status: Never smoker Alcohol intake: never Substance use: never Do You Feel Safe in your Home?: Yes Lack of Transportation: No Lack of Food: Never True Current Housing: I Have Housing Concerned About Future Housing: No Difficulty Paying Gas/Electric Bills: No Difficulty Paying for Meds: No Currently Unemployed: No Education: High School Diploma/GED Difficulty w/ Childcare or Family Care: No Spiritual care concerns: Yes Meds Home Medications and Allergies Home Medications ?Medication ?Instructions ?Recorded ?Confirmed ?Type lisinopril 20 mg tablet 20 mg PO DAILY 11/20/24 11/20/24 History nitroglycerin 0.4 mg sublingual 0.4 mg sublingual Q5M PRN chest 11/20/24 11/20/24 History tablet pain Allergies Allergy/AdvReac Type Severity Reaction Status Date / Time No Known Allergies Allergy Verified 11/20/24 06:37 Vital Signs Vital Signs - 24 hr 11/20/24 14:50 11/20/24 15:38 11/20/24 16:00 Temperature 36.4 C 36.6 C Pulse Rate 71 79 Respiratory Rate 16 16 Blood Pressure 125/79 94/65 L Pulse Oximetry 95 96 Oxygen Delivery Room Air 11/20/24 16:00 11/20/24 18:00 11/20/24 19:52 Temperature 36.6 C Pulse Rate 68 76 67 Respiratory Rate 16 Blood Pressure 128/78 Pulse Oximetry 95 Oxygen Delivery 11/20/24 20:00 11/20/24 20:00 11/20/24 23:48 Temperature 36.6 C Pulse Rate 68 68 71 Respiratory Rate 16 16 Blood Pressure 106/68 Pulse Oximetry 95 98 Oxygen Delivery Room Air 11/20/24 23:49 11/20/24 23:50 11/21/24 04:00 Temperature 36.5 C Pulse Rate 68 68 69 Respiratory Rate 16 16 Blood Pressure 113/64 Pulse Oximetry 98 98 Oxygen Delivery Room Air 11/21/24 04:00 11/21/24 04:00 11/21/24 06:23 Temperature Pulse Rate 73 73 64 Respiratory Rate 16 Blood Pressure Pulse Oximetry 98 Oxygen Delivery Room Air 11/21/24 07:35 Temperature 36.6 C Pulse Rate 68 Respiratory Rate 16 Blood Pressure 120/68 Pulse Oximetry 95 Oxygen Delivery Results Labs and Meds 11/21/24 04:01 11/21/24 04:01 Lab results: Cardiac Enzymes 11/20/24 Range/Units 15:29 Troponin I < 0.012 (0.000-0.034) ng/mL Lipids 11/21/24 Range/Units 04:01 Triglycerides 256 H (<150) mg/dL Cholesterol 200 (0-200) mg/dL CBC 11/21/24 Range/Units 04:01 WBC 6.7 (4.5-10.0) K/mm3 RBC 4.36 L (4.6-6.20) M/mm3 Hgb 13.5 L (14.0-18.0) g/dL Hct 41.3 L (42.0-52.0) % Plt Count 166 (150-375) k/mm3 Comprehensive Metabolic Panel 11/21/24 Range/Units 04:01 Sodium 136 L (137-145) mmol/L Potassium 4.2 (3.4-5.0) mmol/L Chloride 103 (98-107) mmol/L Carbon Dioxide 29 (22-30) mmol/L BUN 17 (9-20) mg/dL Creatinine 0.97 (0.7-1.3) mg/dL Glucose 99 (65-110) mg/dL Calcium 8.6 (8.4-10.2) mg/dL Intake and Output 11/20/24 11/21/24 11/21/24 23:59 07:59 15:59 Intake Total 240 350 Output Total 300 500 Balance -60 -150 Intake: Oral 240 350 Output: Urine 300 500 Other: # Unmeasured Voids 1 Patient Weight 11/21/24 23:59 Weight 105.4 kg
[2024-11-21 10:00] VITALS: PULSE 70
[2024-11-21 11:29] VITALS: BP 122/77; PULSE 66; RESP 16; TEMP 36.8; O2SAT 94
--- NOTE | 2024-11-21 11:31 | IVDEFINITY ---
Prior to administration of IV Definity the patient was educated on the risks and benefits of the imaging enhancing agent including potential adverse side effects. The patient verbalized understanding. Allergies were verified. No exclusion criteria were identified and at least one of the following inclusion criteria were met: 1) physician request, 2) patient technically difficult to image (per the [place] [employer] guidelines of two or more segments not discernable within the apical view), or 3) questionable left ventricular function. ?
--- NOTE | 2024-11-21 11:52 | P.DS_ITS ---
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 Patient notes he was driving the morning around 4:00 a.m. and suddenly developed 4/ 10 sharp midsternal chest pain.pain was intermittent midsternal , nonradiating, getting worse with taking deep breath and palpation. denies N/V, sweating.denies leg swelling or pain. he continue driving but pain was getting worse. he took advil and one nitro and pain was better. Patient denies smoking. Family history of h eart disease in his father at old age He decided to come to [facility] for further management. [facility] EKG showed some nonspecific T inversion. troponin negative. He was transferred to our hospital for further management. At time of my exam patient is feeling fine. chat pain improved. denies any SOB, abd pain, nausea or vomiting. Cardiology team has been consulted. 11/21/24 Patient was seen examined bedside. He has pinpoint. Chest pain improved. Denies any shortness of breath, abdominal pain, nausea vomiting. Echo pending. Cardiology evaluated patient and okay to discharge patient. Patient needs to follow up final Echo report as outpatient Status at Discharge Overall status at discharge: patient is back to baseline Time Spent with Patient Time attestation: Total time spent providing and/or coordinating discharge services: Time spent: Greater than 30 minutes Exam Const: General: cooperative, comfortable, alert, awake, average body habitus and well nourished Nutritional Appearance: average body habitus and well nourished HENMT: Head: normal to inspection, No palpable skull fracture present and normocephalic Neck: Neck: normal visual inspection and full ROM Chest: Chest palpation & inspection: normal inspection of the chest and normal palpation of entire chest wall Resp: Effort & Inspection: normal respiratory effort and able to speak in complete sentences Auscultation: clear to auscultation bilaterally GI: Inspection: normal to inspection Skin: General skin exam: normal color and no rashes or lesions noted Extrem: General: normal to inspection, full ROM and no pedal edema DS: Data Data Completed and Pending Labs on day of discharge: Labs from last 24 hours 11/21/24 11/20/24 04:01 15:29 WBC 6.7 RBC 4.36 L Hgb 13.5 L Hct 41.3 L MCV 94.7 MCH 31.0 MCHC 32.7 RDW 12.9 Plt Count 166 MPV 9.2 Sodium 136 L Potassium 4.2 Chloride 103 Carbon Dioxide 29 Anion Gap 4 BUN 17 Creatinine 0.97 Estim Creat Clear Calc 92 Estimated GFR > 60 Glucose 99 Hemoglobin A1c 5.1 Calcium 8.6 Troponin I < 0.012 Triglycerides 256 H Cholesterol 200 LDL Cholesterol Direct 115 HDL Direct 34 TSH (Reflex) 2.780 Discharge Plan Discharge Consulting providers: Kim Davila Discharging Clinician: Emir Whitlock Patient Disposition: Home Activity: as tolerated Diet: heart healthy Discharge Instructions: Follow with PCP in 1 week Follow-up with final echo report as outpatient Follow-up with Cardiology as needed Check your blood pressure and heart rate regularly and report to PCP Patient Instructions: Antibiotic Form Patient Language: Turkmen Stand Alone Forms: General Discharge Information Follow-up/Referrals: Lana Lemus MD [Primary Care Provider] - Discharge Medications: Continued lisinopril 20 mg tablet 20 mg PO DAILY nitroglycerin 0.4 mg tablet, sublingual 0.4 mg sublingual Q5M PRN (Reason: chest pain) Date of admission: 11/20/24 14:47 Primary Care Provider: Lana Lemus Admitting Provider: Corrina Puente Attending physician on admission: Emir Whitlock Condition: Improved Quality VTE Prophylaxis VTE prophylaxis: mechanical ordered
== END 2024-11-21 12:56 | disposition home or self-care (01) ==
PROVIDERS: Physician Assistant; Admitting Provider Internal Medicine; PCP Family Medicine; Visit Provider Internal Medicine
DX: R07.89 Other chest pain (principal); I10 Essential (primary) hypertension; F41.9 Anxiety disorder, unspecified; Z79.899 Other long term (current) drug therapy; Z82.49 Family history of ischemic heart disease and other diseases of the circulatory system
CPT/HCPCS: 36415; 80048; 80061; 83036; 84443; 84484; 85027; 93005; 96372; 96374; C8929; G0378; J1650; Q9957

== ENCOUNTER 2025-01-06 08:13 | Outpatient (CLI) | payer OTHER, SELFPAY ==
--- NOTE | ~2025-01-06 | CT_ITS ---
CLINICAL INDICATION: Abnormal chest x-ray COMPARISON: Reference is made to a chest radiograph dated 11/20/2024. Comparison is made to CT examination of the chest dated 03/16/2015. TECHNIQUE: Multiple contiguous axial images of the chest was performed following the administration o f intravenous contrast. This CT examination was performed utilizing dose reduction techniques. DLP: 415 mGy-cm FINDINGS/OBSERVATIONS: LUNG:Interval decrease in size of a nodule present within the superior segment of the left lower lobe measuring 7.9 x 10.9 mm (compared with 10.2 x 12.7 mm on the 2015 examination). Interval decrease in size of a second pulmonary nodule also noted within the superior segment of the left lower lobe measuring 11.2 x 11.6 mm (compared with 13.8 x 13.5 mm on the previous study). These foci also demonstrate central calcification on today's examination, likely representing either calcified granulomas versus calcified hamartomas. The remainder of the lungs are clear. HEART: The heart is of normal size, without pericardial effusion. MEDIASTINUM: No pathologically enlarged or morphologically suspicious lymph nodes are identified within the medias tinum, bilateral axilla, within the soft tissues of the anterior chest wall. SOFT TISSUES OF THE CHEST: Unremarkable. BONES OF THE CHEST: No acute fracture. No lytic or blastic lesions are identified. IMPRESSION: Calcified nodules within the superior segment of the left lower lobe corresponding to recent chest ra diograph which are smaller than on the [address], and represent either calcified hamartomas versu s calcified granulomas. No further follow-up is needed. Reviewed, dictated and finalized at location A. IMPRESSION: Calcified nodules within the superior segment of the left lower lobe correspond ing to recent chest radiograph which are smaller than on the [address], and represent either calcified hamartomas versus calcified granulomas. No further follow-up is needed.
== END 2025-01-06 08:14 | disposition home or self-care (01) ==
LOC: CHSIMG 08:13
PROVIDERS: PCP Family Medicine; Visit Provider Nurse Practitioner Family
DX: R91.1 Solitary pulmonary nodule (principal); R91.8 Other nonspecific abnormal finding of lung field
CPT/HCPCS: 71250

== ENCOUNTER 2025-04-08 19:35 | Emergency (ER) | payer OTHER, SELFPAY ==
--- NOTE | ~2025-04-08 | XR_ITS ---
EXAMINATION: XR chest 1V portable 04/08/2025 19:51 INDICATION: Cough PROCEDURE: AP portable chest COMPARISON: Comparison to multiple prior studies sequentially, with oldest reviewed study dated 08/31/2013. FINDINGS: The lungs are clear. The cardiomediastinal silhouette is within normal limits. There are no pleural effusions. There is no pneumothorax suspected. IMPRESSION: 1: NO ACUTE CARDIOPULMONARY DISEASE. Reviewed, dictated and finalized at location O.
[2025-04-08 19:40] VITALS: BP 129/84; PULSE 77; RESP 14; TEMP 36.6; O2SAT 92
--- NOTE | 2025-04-08 19:42 | ECG_ITS ---
Test Date: 2025-04-08 19:52:01 Measurements Intervals [place] Rate: 69 P: 49 FL: 188 QRS: 50 QRSD: 112 T: 10 QT: 391 QTc: 421 Interpretive Statements SINUS RHYTHM INTRAVENTRICULAR CONDUCTION DELAY ST ELEVATION IN DIFFUSE LEADS, PROBABLY EARLY REPOLARIZATION PEAKED T WAVES- CONSIDER HYPERKALEMIA BASELINE ARTIFACT- I, III, AVR, AVL, AVF, V1 ABNORMAL ECG Compared to ECG 11/20/2024 15:34:53 PEAKED T WAVES NOW PRESENT Electronically Signed On 04-08-2025 20:16:41 CDT by Rai Delacruz D.O.
[2025-04-08 19:54] LABS: Hematocrit 41.2 % (42.0-52.0); Hemoglobin 13.7 g/dL (14.0-18.0); Immature Granulocyte Percent A 0.7 % (0-0.5); Lymphocytes Absolute Auto 1.34 K/mm3 (0.9-3.2); Mean Corpuscular HGB Conc 33.3 g/dl (32-36); Mean Corpuscular Hemoglobin 30.8 pg (26-34); Mean Corpuscular Volume 92.6 fl (80-100); Nucleated Red Blood Cells Absolute Auto 0.000 K/mm3 (0.0-0.012); Nucleated Red Blood Cells Perc 0.0 % (0.0-0.2); Platelet Count Result 166 k/mm3 (150-375); Red Blood Count 4.45 M/mm3 (4.6-6.20); White Blood Count 9.1 K/mm3 (4.5-10.0)
--- OUTSIDE RECORDS SUMMARY | 2025-04-08 20:15 | XMS_ITS | Encounter Summary ---
Author Organization [facility] Address [address] [place] [id number] Care Team Providers Care Office Helper Clerical Name Role Phone Lana Lemus MD Primary Care Provider [phone] Encounter Details Date Type Department Care Team (Late st Contact Info) Description 01/21/2019 Abstract SFL CONVERSION [address] [place] [address] , Generic Conversion, Social History Tobacco Use Types Packs/Day Years Used Date Smoking Tobacco: Never Sex and Gender Information Value Date Recorded Sex Assigned at Male 02/28/2025 5:22 PM CDT Legal Sex Male 10:57 PM CDT Gender Identity Not on file Sexual Orientation Not on file documented as of this encounter Plan of Treatment Not on file documented as of this encounter Visit Diagnoses Not on filedocumented in this encounter Additional Health Concerns Infection Onset Date Last Indicated Resolved Time COVID-19 Rule Out 08/20/2021 08/20/2021 08/20/2021 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
[2025-04-08 20:18] LABS: Alanine Aminotransferase 49 U/L (6-50); Albumin Level 4.5 g/dL (3.5-5.1); Alkaline Phosphatase 69 U/L (38-126); Anion Gap 8 mmol/L (4-12); Aspartate Amino Transferase 39 U/L (17-59); Bilirubin,Total 0.3 mg/dL (0.2-1.3); Blood Urea Nitrogen 22 mg/dL (9-20); Calcium 9.5 mg/dL (8.4-10.2); Carbon Dioxide 26 mmol/L (22-30); Chloride 102 mmol/L (98-107); Estimated CRCL calculation 93 ml/min; Estimated Glomerular Filt Rate > 60; Glucose 120 mg/dL (65-110); Lipase 156 U/L (23-300); Magnesium 2.1 mg/dL (1.6-2.3); Potassium 4.7 mmol/L (3.4-5.0); Sodium 136 mmol/L (137-145); Total Protein 7.5 g/dL (6.3-8.2)
--- NOTE | 2025-04-08 21:02 | ED_ITS ---
HPI - Abdominal Pain General Chief Complaint: Abdominal Pain Stated Complaint: Abd pain after coughing fit Time Seen by Provider: 04/08/25 19:38 History of Present Illness HPI narrative: Patient is a 59-year-old male who presents emergency department this evening complaining of upper abdominal pain after a coughing episode. Upon arrival to the ED, patient states that the pain has completely resolved. He states that he feels fine and does not have any complaints at this time. States the only reason he came here is because his significant other here asked him to get checked out. Related Data Home Medications ?Medication ?Instructions ?Recorded ?Confirmed ?Last Taken ?Type lisinopril 20 mg tablet 20 mg PO DAILY 11/20/24 04/0 03/0911/20/24 History nitroglycerin 0.4 mg sublingual 0.4 mg sublingual Q5M PRN chest 11/20/24 11/20/24 11/20/24 History tablet pain Allergies Allergy/AdvReac Type Severity Reaction Status Date / Time No Known Allergies Allergy Verified 11/20/24 06:37 Review of Systems 2 Review of Systems: All systems are reviewed and are negative unless stated otherwise in the HPI. FORMERLY [facility], [facility] Past Medical History Medical History Chest pain No active medical problems Surgical History Surgical History Hx of myringoplasty bilateral H/O inguinal hernia repair as a child Family History Family History Father Heart disease Cerebrovascular accident Social History Social History Smoking status: Never smoker Alcohol intake: never Substance use: never Do You Feel Safe in your Home?: Yes Lack of Transportation: No Lack of Food: Never True Current Housing: I Have Housing Concerned About Future Housing: No Difficulty Paying Gas/Electric Bills: No Difficulty Paying for Meds: No Currently Unemployed: No Education: High School Diploma/GED Difficulty w/ Childcare or Family Care: No Spiritual care concerns: Yes Exam 2 Narrative: General: Alert, awake, afebrile, in no acute distress. HEENT: PERRL, no rhinorrhea, no post nasal drip, oropharynx clear. Neck: Trachea midline, no JVD, no lymphadenopathy. Cardiovascular: Regular rate and rhythm, no murmurs, rubs or gallops, no peripheral edema. Respiratory: Clear to auscultation bilaterally, no tachypnea, no wheezing, no rhonchi, no rubs, no respiratory distress. Abdomen: Soft, nontender, nondistended, no rebound, no guarding, no peritoneal signs. Musculoskeletal: No joint swelling or deformity, normal muscle tone. Skin: No rashes or petechia, no signs of infection. Psychiatric: Alert and oriented, normal behavior and judgment for situation. Neurological: Alert and oriented to person, place, and time. Follows all commands. No focal deficits, speech is clear and fluent. Course Vital Signs Vital signs: Vital Signs Temperature 97.8 F 04/08/25 19:40 Pulse Rate 77 04/08/25 19:40 Respiratory Rate 14 04/08/25 19:40 Blood Pressure 129/84 04/08/25 19:40 Pulse Oximetry 92 04/08/25 19:40 Oxygen Delivery Room Air 04/08/25 19:40 Temperature 97.8 F 04/08/25 19:40 Pulse Rate 77 04/08/25 19:40 Respiratory Rate 14 04/08/25 19:40 Blood Pressure 129/84 04/08/25 19:40 Pulse Oximetry 92 04/08/25 19:40 Oxygen Delivery Room Air 04/08/25 19:40 MDM - Abdominal Pain MDM Narrative Medical decision making narrative: The patient was evaluated by myself in the emergency department. History is obtained from patient who is an independent historian and physical exam was performed. External medical records were reviewed at this time. IV was established and pertinent tests were ordered. EKG was obtained which revealed sinus rhythm rate 69 beats per minute with early repolarization, otherwise no evidence of acute ischemia. EKG was independently interpreted by me and is currently pending official cardiology read. Laboratory results obtained revealing no acute process. Shared medical decision-making with the patient at this time regarding obtaining CT abdomen pelvis with IV contrast were discussed, however, patient declined stating that he does not have any abdominal pain at this time and does not want to CT scan. Differential diagnosis considerations include costochondritis, acute viral syndrome, gastritis, gastroenteritis. Comorbidities impacting this visit include none. I have evaluated and discussed social determinants of health with the patient that could potentially impact subsequent diagnosis and treatment plans. On repeat assessment of the patient, reevaluation revealed that the patient is doing well and is in no acute distress. Patient symptoms have improved since he arrived to our emergency department. Repeat vital signs were all reviewed and noted to be stable. Differential diagnosis and treatment plan were discussed with the patient at bedside. Patient agrees with discussion and after shared medical decision making agrees with discharge. All questions were answered to the patient's satisfaction. Patient will follow up with his PCP in 3-5 days. Patient was provided with strict return precautions and instructed to return to the emergency department if any new or worsening symptoms develop. The patient was discharged in stable condition. Lab Data 04/08/25 19:47 04/08/25 19:47 Labs: Lab Results 04/08/25 04/08/25 Range/Units 19:47 19:47 WBC 9.1 (4.5-10.0) K/mm3 RBC 4.45 L (4.6-6.20) M/mm3 Hgb 13.7 L (14.0-18.0) g/dL Hct 41.2 L (42.0-52.0) % MCV 92.6 (80-100) fl MCH 30.8 (26-34) pg MCHC 33.3 (32-36) g/dl RDW 12.9 (11.5-14.5) % Plt Count 166 (150-375) k/mm3 MPV 9.0 (7.4-10.4) fl Immature Gran % (Auto) 0.7 H (0-0.5) % Neut % (Auto) 76.4 H (45.5-73.1) % Lymph % (Auto) 14.7 L (18.3-44.2) % [place] % (Auto) 5.6 (2.6-8.5) % Eos % (Auto) 2.3 (0-4.4) % Baso % (Auto) 0.3 (0.2-1.2) % Lymph # (Auto) 1.34 (0.9-3.2) K/mm3 [place] # (Auto) 0.5 (0.1-0.6) K/mm3 Eos # (Auto) 0.2 (0-0.3) K/mm3 Baso # (Auto) 0.0 (0.0-0.1) K/mm3 Abs Immat Gran (auto) 0.06 H (0.00-0.031) K/mm3 Absolute Neuts (auto) 7.0 H (1.3-6.7) K/mm3 Absolute Nucleated RBC 0.000 (0.0-0.012) K/mm3 Nucleated RBC % 0.0 (0.0-0.2) % Sodium 136 L (137-145) mmol/L Potassium 4.7 (3.4-5.0) mmol/L Chloride 102 (98-107) mmol/L Carbon Dioxide 26 (22-30) mmol/L Anion Gap 8 (4-12) mmol/L BUN 22 H (9-20) mg/dL Creatinine 0.96 (0.7-1.3) mg/dL Estim Creat Clear Calc 93 ml/min Estimated GFR > 60 (59 - ) Glucose 120 H (65-110) mg/dL Calcium 9.5 (8.4-10.2) mg/dL Magnesium 2.1 Cancelled (1.6-2.3) mg/dL Total Bilirubin 0.3 (0.2-1.3) mg/dL AST 39 (17-59) U/L ALT 49 (6-50) U/L Alkaline Phosphatase 69 (38-126) U/L Total Protein 7.5 (6.3-8.2) g/dL Albumin 4.5 (3.5-5.1) g/dL Lipase 156 (23-300) U/L Imaging Data Radiologist's impression: ITS Impressions Chest X-Ray 04/08/25 19:55 IMPRESSION: 1: NO ACUTE CARDIOPULMONARY DISEASE. Discharge Plan Discharge Clinical Impression: Abdominal pain Patient Disposition: Home Condition: Improved Instructions: Antibiotic Form, Abdominal Pain (ED) Additional Instructions: Please follow-up with your family doctor within the next 3-5 days. Return to emergency department if any new or worsening symptoms develop. You after the CT abdomen and pelvis for further evaluation of your abdominal pain, however you declined since you no longer have abdominal pain. If your pain returns, return to the ED for further evaluation and CT imaging. Patient Language: Occitan Prescriptions: No Action lisinopril 20 mg tablet 20 mg PO DAILY nitroglycerin 0.4 mg tablet, sublingual 0.4 mg sublingual Q5M PRN (Reason: chest pain) Follow-up/Referrals: Lana Lemus MD [Primary Care Provider, Family Practice] - 3 Days Time of Disposition: 21:02
== END 2025-04-08 21:21 | disposition home or self-care (01) ==
PROVIDERS: Emergency Provider Emergency Medicine; PCP Family Medicine
DX: R10.10 Upper abdominal pain, unspecified (principal); I45.9 Conduction disorder, unspecified; R94.31 Abnormal electrocardiogram [ECG] [EKG]
CPT/HCPCS: 36415; 71045; 80053; 83690; 83735; 85025; 93005; 99283